=== PATIENT | male | born 1985 | race Caucasian/White ===

== ENCOUNTER → 2021-04-06 11:42 | Outpatient (CLI) | payer OTHER, SELFPAY ==
[2021-04-06 18:24] LABS: Add Manual Diff / Slide Review NO; Basophils Absolute Auto 100 /uL (0-100); Eosinophils Absolute Auto 300 /uL (0-450); Eosinophils Percent Auto 4.4 % (2-4); Hematocrit 45.6 % (41-53); Hemoglobin 15.9 g/dL (13.5-17.5); Lymphocytes Absolute Auto 2000 /uL (1100-4500); Lymphocytes Percent Auto 29.1 % (25-40); Mean Corpuscular HGB Conc 34.9 % (30-36); Mean Corpuscular Hemoglobin 31.4 PG (26-34); Mean Corpuscular Volume 90.1 fL (80-100); Monocytes Absolute Auto 300 /uL (0-900); Monocytes Percent Auto 4.4 % (3-14); Neutrophils Absolute Auto 4200 /uL (1500-7000); Neutrophils Percent Auto 61.1 % (50-75); Platelet Count 226 X10^3/uL (150-400); Red Blood Cell Count 5.06 X10^6/uL (4.5-5.9); Red Cell Distribution Width 13.1 % (11.6-14.8); White Blood Cell Count 6.9 X10^3/uL (4.5-11.0)
[2021-04-06 19:07] LABS: Erythrocyte Sedimentation Rate 4 MM/HR (0-15)
[2021-04-06 19:13] LABS: Alanine Aminotransferase 44 IU/L (<50); Albumin 4.8 g/dL (3.5-5.0); Albumin Globulin Ratio 1.8 (1.0-2.8); Alkaline Phosphatase 44 U/L (38-126); Aspartate Aminotransferase 37 IU/L (17-59); BUN Creatinine Ratio 12.7 (6-22); Bilirubin Total 0.6 mg/dL (0.2-1.3); Blood Urea Nitrogen 10 mg/dL (9-20); C-Reactive Protein Quant < 0.5 mg/dL (<1.0); Calcium 9.7 mg/dL (8.4-10.2); Carbon Dioxide 27 mmol/L (22-32); Chloride 106 mmol/L (98-107); Estimated Glomerular Filt Rate > 60.0 mL/min (>60); Globulin 2.7 g/dL (1.7-4.1); Glucose 101 mg/dL (70-100); HEMOLYSIS < 15 (0-50); Potassium 4.5 mmol/L (3.4-5.1); Sodium 142 mmol/L (137-145); Total Protein 7.5 g/dL (6.3-8.2)
[2021-04-06 20:03] LABS: Vitamin B12 388 pg/mL (239-931)
[2021-04-16 18:22] LABS: HLA B27 Negative (.)
== END ==
PROVIDERS: PCP Family Medicine; Visit Provider Physician Assistant
DX: G89.29 Other chronic pain (principal); M54.50 Low back pain, unspecified; M54.6 Pain in thoracic spine
CPT/HCPCS: 80053; 81374; 82607; 83036; 85025; 85651; 86140

== ENCOUNTER → 2021-08-04 13:24 | Outpatient (CLI) | payer OTHER, SELFPAY ==
--- NOTE | 2021-08-04 13:26 | DI.MRI.S_ITS ---
PROCEDURE: MR LUMBAR SPINE WO CON INDICATIONS: Chronic pain w/ sciatica, history trauma to back TECHNIQUE: Noncontrast sagittal T1 spin echo and T2 fast echo, sagittal STIR, axial T1 and T2 fast spin echo through the lumbar spine. In cases with scoliosis, additional coronal T2 fast spin echo may be performed. COMPARISON: [facility], MR, L-SPINE WITHOUT CONTRAST, 08/08/2006, 14:16. FINDINGS: Image quality: Excellent. Alignment and Curvature: There is normal bony alignment. Bone Marrow: Small, benign intraosseous hemangioma noted in the L2 vertebral body. No acute vertebral body compression fractures. Spinal Cord: Conus medullaris terminates at the L1 level. Visualized cord demonstrates normal signal and size. Paraspinous Soft Tissues: No paravertebral masses. T12-L1: Normal appearance. L1-L2: Normal appearance. L2-L3: Normal appearance. L3-L4: Disc has a normal appearance. Mild bilateral facet hypertrophy. No central stenosis. No neural foraminal narrowing. No neural compression. L4-L5: Disc has a normal appearance. Mild bilateral facet hypertrophy. No central stenosis. No neural foraminal narrowing. No neural compression. L5-S1: Disc has a normal appearance. Mild bilateral facet hypertrophy. No central stenosis. No neural foraminal narrowing. No neural compression. IMPRESSION: 1. Mild L3-L4, L4-L5 and L5-S1 facet arthropathy. 2. No central stenosis. 3. No neural foraminal narrowing. 4. No neural compression. Dictated by: Corinna Palm MD, PhD on 08/05/2021 at 8:56 Approved by: Corinna Palm MD, PhD on 08/05/2021 at 9:00
--- NOTE | 2021-08-04 13:26 | DI.MRI.S_ITS ---
PROCEDURE: MR THORACIC SPINE WO CON INDICATIONS: Chronic pain w/ sciatica, history trauma to back TECHNIQUE: Noncontrast sagittal T1 spine echo and T2 fast spin echo, sagittal STIR, axial T1 and T2 fast spin echo through the thoracic spine. COMPARISON: [facility], , T-SPINE WITHOUT CONTRAST, 08/08/2006, 13:19. FINDINGS: Image quality: Excellent. Alignment and Curvature: There is normal bony alignment. Bone Marrow: Benign intraosseous hemangioma noted in the T1 vertebral body. Small Schmorl's node noted in the superior endplate of the L5 vertebral body. No acute vertebral body compression fractures. Spinal Cord: Visualized spinal cord is normal in size and signal. Paraspinous Soft Tissues: No paravertebral masses. Bilateral renal cysts. Miscellaneous: Loss of disc signal noted in the T3-T4, T4-T5, T5-T6, T6-T7, T7-T8, T8-T9 and T9-T10 discs. Small central T6-T7 and T9-T10 disc protrusions. No central canal narrowing. No neural foraminal narrowing. No neural compression. IMPRESSION: 1. Mild multilevel degenerative disc disease. 2. No central stenosis. 3. No neural foraminal narrowing. 4. No neural compression. 5. Small Schmorl's node in the superior endplate of the L5 vertebral body which has developed in the interval since prior MRI obtained August 08, 2006. Dictated by: Corinna Palm MD, PhD on 08/05/2021 at 8:51 Approved by: Corinna Palm MD, PhD on 08/05/2021 at 8:55
== END ==
PROVIDERS: PCP Physician Assistant; Referring Provider Physician Assistant; Visit Provider Physician Assistant
DX: M51.34 Other intervertebral disc degeneration, thoracic region (principal); M47.816 Spondylosis without myelopathy or radiculopathy, lumbar region; M51.46 Schmorl's nodes, lumbar region; M54.40 Lumbago with sciatica, unspecified side; M54.9 Dorsalgia, unspecified; G89.29 Other chronic pain
CPT/HCPCS: 72146; 72148

== ENCOUNTER → 2022-06-24 11:13 | Outpatient (CLI) | payer OTHER, SELFPAY ==
[2022-06-24 20:33] LABS: Alanine Aminotransferase 72 IU/L (<50); Alkaline Phosphatase 55 U/L (38-126); Aspartate Aminotransferase 58 IU/L (17-59); BUN Creatinine Ratio 11.9 (6-22); Blood Urea Nitrogen 12 mg/dL (9-20); Calcium 9.5 mg/dL (8.4-10.2); Carbon Dioxide 29 mmol/L (22-32); Chloride 101 mmol/L (98-107); Cholesterol 239 mg/dL (140-199); Estimated Glomerular Filt Rate > 60 mL/min (>60); Glucose 105 mg/dL (70-100); HDL Cholesterol 52 mg/dL (40-60); LDL Cholesterol Calculated 132 mg/dL (<100); Sodium 142 mmol/L (137-145); Total Protein 8.7 g/dL (6.3-8.2); Triglycerides 277 mg/dL (35-150)
[2022-06-24 21:34] LABS: HIV 1 & 2 Ab/Ag 4th Gen Combo NEGATIVE (NEGATIVE); Hep C Virus Ab w/Reflex Quant NEGATIVE s/c (NEGATIVE)
[2022-06-24 21:43] LABS: Urine N gonorrhoeae NOT DETECTED
[2022-06-24 22:22] LABS: Urine Chlamydia NOT DETECTED
[2022-06-25 17:16] LABS: Albumin 5.1 g/dL (3.5-5.0); Albumin Globulin Ratio 1.4 (1.0-2.8); Globulin 3.6 g/dL (1.7-4.1); HEMOLYSIS < 15 (0-50)
[2022-06-26 03:07] LABS: RPR Screen Non Reactive (Non Reactive)
[2022-06-26 06:39] LABS: HBsAg Screen Negative (Negative); Hepatitis A Antibody IgM Negative (Negative); Hepatitis B Core Antibody IgM Negative (Negative); Hepatitis C Antibody <0.1 s/co ratio (0.0-0.9)
== END ==
PROVIDERS: PCP Family Medicine; Visit Provider Family Medicine
DX: Z00.00 Encounter for general adult medical examination without abnormal findings (principal); Z11.3 Encounter for screening for infections with a predominantly sexual mode of transmission
CPT/HCPCS: 80053; 80061; 80074; 86592; 86803; 87389; 87491; 87591

== ENCOUNTER → 2022-11-16 11:25 | Outpatient (CLI) | payer OTHER, SELFPAY ==
[2022-11-16 19:43] LABS: Add Manual Diff / Slide Review NO; Basophils Absolute Auto 100 /uL (0-100); Basophils Percent Auto 0.9 % (0-2); Eosinophils Absolute Auto 400 /uL (0-450); Eosinophils Percent Auto 6.3 % (2-4); Hematocrit 43.8 % (41-53); Hemoglobin 15.5 g/dL (13.5-17.5); Lymphocytes Absolute Auto 2200 /uL (1100-4500); Lymphocytes Percent Auto 33.7 % (25-40); Mean Corpuscular HGB Conc 35.4 % (30-36); Mean Corpuscular Volume 90.4 fL (80-100); Monocytes Absolute Auto 500 /uL (0-900); Monocytes Percent Auto 6.8 % (3-14); Neutrophils Absolute Auto 3500 /uL (1500-7000); Neutrophils Percent Auto 52.3 % (50-75); Platelet Count 222 X10^3/uL (150-400); Red Blood Cell Count 4.84 X10^6/uL (4.5-5.9); Red Cell Distribution Width 13.5 % (11.6-14.8); White Blood Cell Count 6.7 X10^3/uL (4.5-11.0)
[2022-11-16 19:57] LABS: Alanine Aminotransferase 89 IU/L (<50); Albumin 4.4 g/dL (3.5-5.0); Albumin Globulin Ratio 1.6 (1.0-2.8); Alkaline Phosphatase 50 U/L (38-126); Aspartate Aminotransferase 48 IU/L (17-59); BUN Creatinine Ratio 11.8 (6-22); Bilirubin Total 0.5 mg/dL (0.2-1.3); Blood Urea Nitrogen 10 mg/dL (9-20); C-Reactive Protein Quant < 0.5 mg/dL (<1.0); Calcium 9.4 mg/dL (8.4-10.2); Carbon Dioxide 29 mmol/L (22-32); Chloride 104 mmol/L (98-107); Estimated Glomerular Filt Rate > 60 mL/min (>60); Globulin 2.7 g/dL (1.7-4.1); Glucose 103 mg/dL (70-100); HEMOLYSIS < 15 (0-50); Potassium 4.2 mmol/L (3.4-5.1); Sodium 139 mmol/L (137-145); Total Protein 7.1 g/dL (6.3-8.2); Uric Acid 8.8 mg/dL (3.5-8.5)
[2022-11-16 20:08] LABS: Rheumatoid Factor < 8.6 IU/mL (<12.0)
[2022-11-16 20:15] LABS: Erythrocyte Sedimentation Rate 3 MM/HR (0-15)
[2022-11-16 20:16] LABS: Vitamin D 25 Hydroxy (D3) 25.2 ng/mL (30.0-100.0)
[2022-11-16 20:59] LABS: Folate 14.7 ng/mL (2.76-20.0); Vitamin B12 Reflex MMA if <400 324 pg/mL (239-931)
[2022-11-18 11:36] LABS: Ionized Calcium 4.9 mg/dL (4.5-5.6)
[2022-11-19 07:12] LABS: Methylmalonic Acid,Serum 196 nmol/L (0-378)
[2022-11-23 17:06] LABS: ANA Screen, IFA Negative (.)
== END ==
PROVIDERS: PCP Family Medicine; Visit Provider Family Medicine
DX: G89.29 Other chronic pain (principal); M25.50 Pain in unspecified joint; M54.50 Low back pain, unspecified; M62.838 Other muscle spasm; R20.2 Paresthesia of skin
CPT/HCPCS: 80053; 82306; 82330; 82607; 82746; 83921; 84550; 85025; 85651; 86038; 86140; 86430

== ENCOUNTER → 2022-12-06 12:32 | Outpatient (CLI) | payer OTHER, SELFPAY ==
[2022-12-06 20:12] LABS: HEMOLYSIS < 15 (0-50); Iron 111 ug/dL (49-181)
[2022-12-06 20:23] LABS: Percent Iron Saturation 27 % (20-50); Total Iron Binding Capacity 405 ug/dL (261-462); Transferrin 280 mg/dL (206-381)
[2022-12-06 20:45] LABS: Ferritin 128 ng/mL (18-464)
[2022-12-09 18:49] LABS: Free Kappa Lt Chains, Serum 20.9 mg/L (3.3-19.4)
[2022-12-29 12:06] LABS: Protein, Total 7.5
[2022-12-29 12:14] LABS: Albumin 4.1
[2022-12-29 12:15] LABS: Alpha-1-Globulin 0.2; Alpha-2-Globulin 0.8
[2022-12-29 12:17] LABS: Gamma Globulin 1.1
[2022-12-29 12:18] LABS: Globulin Total 3.4
[2022-12-29 12:22] LABS: Immunoglobulin A, Serum 149; Immunoglobulin G,Serum 1199
[2022-12-29 12:23] LABS: Immunoglobulin M, Serum 109
[2022-12-29 12:27] LABS: Treponema pallidum Antibodies NON REACTIVE
== END ==
PROVIDERS: PCP Family Medicine; Visit Provider Physician Assistant
DX: R07.0 Pain in throat (principal); G62.9 Polyneuropathy, unspecified; G89.29 Other chronic pain; M62.838 Other muscle spasm; R20.2 Paresthesia of skin; R77.9 Abnormality of plasma protein, unspecified; R79.89 Other specified abnormal findings of blood chemistry
CPT/HCPCS: 82728; 82784; 83540; 83550; 83883; 84155; 84165; 86334; 86780; 87070

== ENCOUNTER → 2023-01-12 12:59 | Outpatient (CLI) | payer OTHER, SELFPAY | PROVIDERS: PCP Family Medicine; Visit Provider Family Medicine | DX: D72.10 Eosinophilia, unspecified (principal); L29.9 Pruritus, unspecified | CPT/HCPCS: 83520 ==

== ENCOUNTER → 2023-06-10 09:04 | Outpatient (CLI) | payer OTHER, MEDICAID, SELFPAY | PROVIDERS: PCP Family Medicine; Referring Provider Internal Medicine Critical Care Medicine; Visit Provider Internal Medicine Critical Care Medicine | DX: J45.40 Moderate persistent asthma, uncomplicated (principal) | CPT/HCPCS: 94060; 94726; 94729; 99214 ==

== ENCOUNTER → 2024-06-25 11:38 | Outpatient (CLI) | payer OTHER, SELFPAY ==
--- NOTE | 2024-06-25 11:39 | DI.MRI.S_ITS ---
PROCEDURE: MR HAND LT WO CON INDICATIONS: Left middle finger injury TECHNIQUE: Noncontrast coronal T1 spin echo and T2 fast spin echo with fat saturation, axial proton density fast spin echo and T2 fast spin echo with fat saturation, sagittal T1 spin echo and STIR through the hand and fingers. COMPARISON: [facility] ([place]), CR, XR HAND LT MIN 3V, 05/15/2024, 15:27. FINDINGS: Image quality: Excellent. Bones: The bones are normally aligned, without marrow contusions or fractures. No intra-osseous lesions. Minimal spurring at the 1st metacarpal base. Type 2 lunate. Soft tissues: Visualized flexor and extensor tendons are intact without tenosynovitis. No sagittal band tear. No collateral ligament tear is seen. Visualized muscles demonstrate normal bulk and internal signal. No intramuscular masses identified. No ganglion cysts. IMPRESSION: No acute trabecular bone injury. No significant ligament or tendon injury is seen. Approved by: Caleb Gorman M.D. on 06/25/2024 at 15:57
== END ==
PROVIDERS: PCP Family Medicine; Referring Provider Physician Assistant; Visit Provider Physician Assistant
DX: S69.92XA Unspecified injury of left wrist, hand and finger(s), initial encounter (principal)
CPT/HCPCS: 73218